=== PATIENT | female | born 1995 | race Caucasian/White ===

== ENCOUNTER → 2020-02-23 | Outpatient (CLI) | payer OTHER ==
--- NOTE | 2020-02-23 10:17 | RAD ---
EXAM: Pelvic sonogram. HISTORY: Pain and irregular periods. TECHNIQUE: Sonographic imaging of the pelvis was performed. COMPARISON: None. FINDINGS: The uterus measures 6.6 x 4.2 x 2.4 cm. The endometrial stripe measures 2 mm in thickness. The ovaries are normal in size and demonstrate normal blood flow. There is no pelvic free fluid. IMPRESSION: 1. Thin endometrial stripe. 2. Otherwise, unremarkable transabdominal pelvic sonogram. Electronically signed by: Maite Gibbs MD (02/23/2020 10:15 AM) [id number]
[2020-02-23 10:35] LABS: BASO % 1 % (0-3); EOS # 0.1 x10^3/uL (0.0-0.7); EOS % 3 % (0-3); HEMATOCRIT 44.8 % (36.0-47.0); HEMOGLOBIN 15.1 g/dL (12.0-15.5); LYMPH # 1.3 x10^3/uL (1.0-4.8); LYMPH % 31 % (24-48); MEAN CORPUSCULAR HEMOGLOBIN 30 pg (25-35); MEAN CORPUSCULAR HGB CONC 34 g/dL (31-37); MEAN CORPUSCULAR VOLUME 88 fL (79-100); MONO # 0.3 x10^3/uL (0.0-1.1); MONO % 7 % (0-9); NEUT # 2.4 x10^3uL (1.8-7.7); NEUT % 58 % (31-73); PLATELET COUNT 250 x10^3/uL (140-400); RED CELL DISTRIBUTION WIDTH 12.7 % (11.5-14.5); WHITE BLOOD COUNT 4.1 x10^3/uL (4.0-11.0)
[2020-02-23 10:47] LABS: ALBUMIN 3.8 g/dL (3.4-5.0); ALBUMIN/GLOBULIN RATIO 1.1 (1.0-1.7); CALCIUM 9.2 mg/dL (8.5-10.1); GFR 69.3; POTASSIUM 3.8 mmol/L (3.5-5.1); TOTAL BILIRUBIN 0.7 mg/dL (0.2-1.0); TOTAL PROTEIN 7.3 g/dL (6.4-8.2)
[2020-02-23 14:00] LABS: THYROID STIM HORMONE (TSH) 5.261 uIU/mL (0.358-3.740)
[2020-02-23 23:07] LABS: DHEA SO4 158.7 ug/dL (110.0-431.7); FSH 9.1 mIU/mL (.); LUTEINIZING HORMONE 17.7 mIU/mL (.); PROGESTERONE 0.2 ng/mL (.); PROLACTIN 27.7 ng/mL (4.8-23.3); TESTOSTERONE TOTAL 41 ng/dL (8-48)
[2020-02-24 01:06] LABS: HEMOGLOBIN A1C 5.1 % (4.8-5.6)
[2020-02-24 15:08] LABS: INSULIN LEVEL 10.5 uIU/mL (2.6-24.9)
== END | disposition home or self-care (01) ==
LOC: US 09:38
PROVIDERS: ATTEND Nurse Practitioner Women's Health
DX: N92.6 Irregular menstruation, unspecified (principal); R10.2 Pelvic and perineal pain
CPT/HCPCS: 36415; 76856; 80053; 80061; 82627; 82670; 83001; 83002; 83036; 83525; 84144; 84146; 84403; 84443; 85025